=== PATIENT | male | born 1975 | race Hispanic/Latino ===

== ENCOUNTER 2024-03-09 16:12 | Emergency (ER) | payer BC, SELFPAY ==
[2024-03-09 16:13] VITALS: BP 128/101; PULSE 88; RESP 16; TEMP -13.1; TEMP 8.5; O2SAT 99; BMI 31.4
[2024-03-09 16:39] VITALS: TEMP 36.9
--- NOTE | 2024-03-09 16:56 | CT_ITS ---
EXAM: CT ANGIOGRAPHY CHEST WITHOUT AND WITH INTRAVENOUS CONTRAST CLINICAL INDICATION: Left back and chest pain TECHNIQUE: Helically acquired angiography images were obtained of the chest without and with intravenous contrast. This CT exam was performed using one or more of the following dose reduction techniques: automated exposure control, adjustment of the mA and/or kV according to patient size, and/or use of iterative reconstruction technique. MIP reconstructed images were created and reviewed. CONTRAST: IV 100mL Isovue-370 RADIATION DOSE: CTDIvol = 9.85 mGy, DLP = 530.65 mGy-cm. COMPARISON: No relevant prior studies available. FINDINGS: PULMONARY ARTERIES: Unremarkable. Normal in caliber. No evidence of pulmonary embolism. AORTA: Unremarkable. Normal in caliber. No evidence of dissection. GREAT VESSELS OF AORTIC ARCH: Unremarkable. Normal in caliber. No evidence of dissection. LUNGS AND PLEURAL SPACES: Mild patchy opacities in the superior-medial and inferior-posterior right upper lobe, predominantly groundglass opacity Central nodular focus of denser opacity of roughly 1.1 cm x 6 mm surrounded by groundglass opacity in the area-posterior right upper lobe. [id number] 7 mm nodule lateral left upper lobe, 7.1 mm x 7 mm x 6 mm. Mild central airway thickening without narrowing or large airway occlusion. Juxtapleural 8mm by 5 mm nodule medial right lung adjacent to minor fissure. HEART: Unremarkable. Heart size is normal. No pericardial effusion. No significant coronary artery calcifications. MEDIASTINUM: Unremarkable. No mediastinal or hilar adenopathy. Esophagus is unremarkable. No hiatal hernia. THYROID: Unremarkable. No thyroid lesions. BONES/JOINTS: Advanced periodontal disease, multiple dental caries, broken or eroded teeth, and periapical dental lucencies. No suspicious lytic or blastic abnormality. STOMACH AND BOWEL: Mild mucosal thickening in bilateral maxillary sinuses. CT/CTA Chest W/WO Contrast IMPRESSION: 1. No evidence of PE or aortic aneurysm or dissection. 2. Mild patchy multifocal groundglass and mildly denser opacities in the right upper lobe issues for pneumonitis multifocal pneumonia. 3. Mild central airway thickening. 4. 2 juxtapleural nodules, 8 mm and 5 mm respectively, both ovoid and nonspiculated. Fleischner Society Guidelines (MacMahon, et al. Radiology 2017; 284(1):228-43) suggest that no follow-up is necessary for patients with a low or high risk of malignancy for these findings. 5. Nodular appearance of irregular structure surrounded by groundglass opacity in the right upper lobe, containing a solid component with irregular margins, spiculation, and measuring 1.1 cm. This may be infiltrate or atypical neoplasm. Recommendations below. 6. RECOMMENDATIONS: For low-risk or high-risk patients consider a follow-up chest CT at 3 months. If unchanged consider an additional follow-up CT at 18-24 months. Alternatively (or additionally) PET/CT or tissue sampling could be performed. Electronically Signed: Prisca Stapleton MD at 19:34 EDT ,
--- NOTE | 2024-03-09 16:57 | EX.ED.UPPERE ---
HPI History of Present Illness Chief Complaint: Upper Extremity Injury Informant: patient Narrative Narrative: 49-year-old male with a history of asthma presenting to the emergency room with 3 weeks of left mid back pain which she states pokes through to the front of his chest. Patient states that he feels like he may have been bit by something and had a small bite on the left mid back near the medial scapular region. Since that time he has noted some swelling. It is painful to move his arms and take a deep breath. He feels a sharp pain going through the front of his chest at times. He denies any change in exercise tolerance. Denies any known coronary artery disease or aortic disease. No history of DVT PE. [facility] Medical History (Updated 03/09/24 @ 20:[address] Jose Aldridge DO) Asthma Home Medications ?Medication ?Instructions ?Recorded ?Last Taken ?Type cyclobenzaprine 10 mg tablet 10 mg PO TID PRN Muscle Spasm #15 03/09/24 Unknown Rx TABLETS Allergy/AdvReac Type Severity Reaction Status Date / Time No Known Allergies Allergy Verified 03/09/24 16:17 Social History Smoking Status: Never smoker ROS ROS ED Constitutional Constitutional ED: Denies chills, fever(s) or weight loss Eyes Eyes: Denies change in vision or diplopia ENT ENT ED: Denies ear pain, rhinorrhea or sore throat Cardiovascular Cardiovascular: Reports chest pain; Denies orthopnea, palpitations or racing heartbeat Respiratory/Chest Respiratory/Chest: Denies cough, dyspnea or orthopnea Gastrointestinal Gastrointestinal: Denies abdominal pain, diarrhea, nausea or vomiting Genitourinary Genitourinary ED: Denies dysuria, hematuria or urinary frequency Musculoskeletal Musculoskeletal: Reports back pain; Denies arthralgias, myalgias or neck pain Integumentary Denies abscess or rash Neurologic Neurologic: Denies headache(s) or weakness Psychiatric Psychiatric: Denies anxiety, depression, suicidal ideation or suicidal thoughts Endocrine Endocrinology: Denies polydipsia, polyphagia or polyuria Allergic/Immunologic Allergic/Immunologic ED: Denies mouth swelling, tongue swelling or urticaria EXAM Physical Exam Const Vital Signs: 03/09/24 16:13 03/09/24 16:36 03/09/24 16:39 Temperature 8.5 F L 98.5 F Temperature Source Temporal Temporal Pulse Rate 88 Respiratory Rate 16 Respiratory Effort Normal Blood Pressure 128/101 H Blood Pressure Mean 110 Pulse Ox 99 Oxygen Delivery Method Room Air Positive well nourished and well developed General Appearance ED: well developed HEENT Reports normocephalic, head/scalp atraumatic and moist mucous membranes Eyes PERRL and EOMs intact bilaterally Neck no lymphadenopathy, supple and no JVD Resp normal respiratory effort and clear to auscultation bilaterally Cardio regular rate, regular rhythm and no murmurs GI normal to inspection, nondistended, normoactive bowel sounds and non-tender Palpation: soft Back/Spine no CVA tenderness and normal ROM Back/Spine Narrative: Patient has tenderness to palpation over the medial superior aspect of the scapula including the rhomboid region. This soft tissue/muscular region appears slightly more prominent than on the left. He has pain with crossing his arms across his chest and burning in his arms posteriorly. I do not appreciate any erythema focal abscess or insect bites. No rash. Extremity normal to inspection General Extremety ED: Negative for edema General Extremity: Negative for edema Neuro oriented x3 and CN's II-XII intact bilaterally Sensorium / Orientation: alert Motor Exam: strength 5/5 throughout Psych mental status grossly normal Mood & Affect: Negative for depressed or tearful Skin no rashes or lesions noted and no wounds MDM MDM MDM Narrative Medical decision making narrative: Differential diagnosis includes but not limited to muscular spasm somatic dysfunction of rib pneumothorax pneumonia malignancy soft tissue infection cardiac pathology Patient appears in a sinus rhythm on the monitor. His troponin is normal. BMP was obtained to assess renal function for CTA. No pulmonary embolism seen no pneumothorax. No obvious soft tissue infection or masses of the left lung. There were changes noted of the right long. He is a non-smoker. He is advised that he have follow-up imaging in 3 months which is expressed to patient and family. I do not suspect pneumonia as he has no fever no cough no shortness of breath. I can write for muscle relaxant would recommend heat gentle stretching massage and follow-up with primary care. History & Record Review Discussion w/independent historian: Patient and Family Discharge Plan Triage Chief Complaint: Upper Extremity Injury Other Complaint: Chest Other ED Provider: Jose Aldridge Dx/Rx/DC Orders Clinical Impression: Back muscle spasm, Apical lung nodule Instructions: ED Back Spasm, No Trauma Prescriptions: New cyclobenzaprine 10 mg tablet 10 mg PO TID PRN (Reason: Muscle Spasm) Qty: 15 0RF Primary Care Provider: CJ BUCIO Referrals: CJ BUCIO CRNP [Primary Care Provider] - Activity Restrictions/Additional Instructions: You need a repeat CT scan to evaluate the right long and 3 months. I recommend heat massage muscle relaxant anti-inflammatories like ibuprofen Print Language: Micronesian Disposition Disposition: Home, Self Care
[2024-03-09 17:29] LABS: Anion Gap 7 (5-15); BUN 14 mg/dL (7-18); BUN/Creat Ratio 18.1 RATIO (10-20); Calcium,Total 9.2 mg/dL (8.5-10.1); Chloride 105 mmol/L (98-107); Creatinine, Serum 0.78 mg/dL (0.70-1.30); EST Glomerular Filtration Rate 112 mL/min (>60); Est Glom Filt Rate - Afr Amer 136 mL/min (>60); Glucose 295 mg/dL (74-106); Potassium 3.6 mmol/L (3.5-5.1); Sodium Level 137 mmol/L (136-145); Troponin-I HS 12 pg/mL (3.0-78.0)
[2024-03-09 18:13] VITALS: BP 107/88; PULSE 78; RESP 18; O2SAT 99
== END 2024-03-09 20:30 | disposition home or self-care (01) ==
PROVIDERS: Emergency Provider Emergency Medicine; PCP Nurse Practitioner Adult Health; Visit Provider Emergency Medicine
DX: M62.830 Muscle spasm of back (principal); R91.1 Solitary pulmonary nodule; J45.909 Unspecified asthma, uncomplicated; Z79.899 Other long term (current) drug therapy
CPT/HCPCS: 71275; 80048; 84484; 99284; Q9967; A4216